=== PATIENT | male | born 1960 | race Caucasian/White ===

== ENCOUNTER 2017-04-19 19:31 | Emergency (ER) | payer MEDICAID ==
[2011-12-28 23:59] VITALS: BMI 25.1
== END 2017-04-19 22:58 | disposition home or self-care (01) ==
LOC: D.ER 19:31
DX: M54.5 Low back pain (principal); M54.16 Radiculopathy, lumbar region

== ENCOUNTER 2018-02-27 18:18 | Emergency (ER) | payer MEDICAID ==
[2011-12-28 23:59] VITALS: BMI 25.1
== END 2018-02-27 21:04 | disposition home or self-care (01) ==
LOC: D.ER 18:18
DX: S50.312A Abrasion of left elbow, initial encounter (principal); V86.99XA Unspecified occupant of other special all-terrain or other off-road motor vehicle injured in nontraffic accident, initial encounter; Y93.89 Activity, other specified; Y92.9 Unspecified place or not applicable